=== PATIENT | female | born 1960 | race Caucasian/White ===

== ENCOUNTER 2022-12-09 12:26 | Inpatient (IN) | payer OTHER ==
[2022-12-09] MEDS ORDERED: DEXAMETHASONE SOD PHOSPHATE 4 MG/1 ML VIAL IVPUSH SCH (14:00)
[2022-12-09] MEDS ORDERED: ACETAMINOPHEN 1000 MG/100 ML BAG IVPB ONE (14:01)
[2022-12-09] MEDS ORDERED: ACETAMINOPHEN INJECTION 100 ML IVPB ONE (14:12)
[2022-12-09] MEDS ORDERED: DEXAMETHASONE SOD PHOSPHATE 10 MG/1 ML VIAL ONE (14:12)
[2022-12-09 14:48] LABS: BASO % 0.6 % (0-2.0); HEMATOCRIT 37.9 % (32.4-45.2); HEMOGLOBIN 13.2 GM/dL (10.7-15.3); LYMPH % 21.9 % (8-40); MCH 30.2 pg (25.7-33.7); MCHC 34.8 g/dl (32.0-36.0); MEAN CELL VOLUME 86.8 fl (80-96); MEAN PLT VOLUME 7.5 fl (7.5-11.1); MONO % 16.2 % (3.8-10.2); NEUT % 61.3 % (42.8-82.8); PLATELET COUNT 256 10^3/uL (134-434); RBC 4.36 M/mm3 (3.60-5.2); RDW 14.4 % (11.6-15.6); WHITE BLOOD COUNT 6.9 K/mm3 (4.0-10.0)
[2022-12-09 14:57] LABS: INR 1.12 (0.83-1.09)
[2022-12-09 14:59] LABS: ACTIVATED PTT 37.3 SECONDS (25.2-36.5)
[2022-12-09 15:10] LABS: POTASSIUM 4.3 mmol/L (3.5-5.1)
[2022-12-09 15:13] LABS: ALBUMIN 3.3 g/dl (3.4-5.0); BLOOD UREA NITROGEN 10.9 mg/dL (7-18); CALCIUM 8.9 mg/dL (8.5-10.1); MAGNESIUM 2.4 mg/dL (1.8-2.4)
[2022-12-09 15:16] LABS: CREATININE 0.6 mg/dL (0.55-1.3)
[2022-12-09 15:17] LABS: BILIRUBIN,TOTAL 0.3 mg/dL (0.2-1); TOT PROT 7.4 g/dl (6.4-8.2)
[2022-12-09 15:21] LABS: N-TERMINAL BNP 75.2 pg/ml (5-125)
[2022-12-09] MEDS ORDERED: clonazePAM 0.5 MG TABLET PO ONE (17:54)
[2022-12-09] MEDS ORDERED: REMDESIVIR 200 MG in SODIUM CHLORIDE 250 ML IVPB ONE (18:15)
[2022-12-09] MEDS ORDERED: clonazePAM 0.5 MG TABLET ONE ×2 (18:26→21:04)
[2022-12-09] MEDS ORDERED: DIVALPROEX NA *ER* EXTEND REL 250 MG TABLET.SA ONE (21:04)
[2022-12-09] MEDS ORDERED: QUEtiapine FUMARATE 100 MG TABLET (FP) ONE (21:04)
[2022-12-09] MEDS: PERPHENAZINE 4 MG TABLET PO SCH (21:14)
[2022-12-09] MEDS: QUEtiapine FUMARATE 300 MG TABLET PO SCH (21:14)
[2022-12-09] MEDS: DIVALPROEX NA *ER* EXTEND REL 250 MG TABLET.SA PO SCH (21:14)
[2022-12-09] MEDS: clonazePAM 0.5 MG TABLET PO SCH (21:14)
[2022-12-10] MEDS ORDERED: LEVOTHYROXINE NA 25 MCG TABLET (FP) ONE (07:24)
[2022-12-10] MEDS ORDERED: clonazePAM 0.5 MG TABLET ONE ×2 (07:24→13:49)
[2022-12-10] MEDS ORDERED: LEVOTHYROXINE NA 100 MCG TABLET (FP) ONE (07:24)
[2022-12-10] MEDS ORDERED: DIVALPROEX NA *ER* EXTEND REL 250 MG TABLET.SA ONE (07:25)
[2022-12-10] MEDS: LEVOTHYROXINE NA 125 MCG TABLET (FP) PO SCH (07:33)
[2022-12-10] MEDS: clonazePAM 0.5 MG TABLET PO SCH ×3 (07:33→21:48)
[2022-12-10] MEDS: DIVALPROEX NA *ER* EXTEND REL 250 MG TABLET.SA PO SCH ×2 (07:33→22:58)
[2022-12-10 08:09] LABS: BASO % 0.7 % (0-2.0); HEMATOCRIT 37.8 % (32.4-45.2); HEMOGLOBIN 12.6 GM/dL (10.7-15.3); LYMPH % 25.7 % (8-40); MCH 29.7 pg (25.7-33.7); MCHC 33.3 g/dl (32.0-36.0); MEAN CELL VOLUME 89.1 fl (80-96); MEAN PLT VOLUME 7.2 fl (7.5-11.1); MONO % 9.6 % (3.8-10.2); PLATELET COUNT 255 10^3/uL (134-434); RBC 4.24 M/mm3 (3.60-5.2); RDW 14.3 % (11.6-15.6)
[2022-12-10 08:36] LABS: POTASSIUM 3.9 mmol/L (3.5-5.1)
[2022-12-10 08:40] LABS: CALCIUM 8.8 mg/dL (8.5-10.1)
[2022-12-10 08:41] LABS: BLOOD UREA NITROGEN 16.4 mg/dL (7-18); MAGNESIUM 2.5 mg/dL (1.8-2.4)
[2022-12-10 08:43] LABS: BILIRUBIN,TOTAL 0.3 mg/dL (0.2-1)
[2022-12-10 08:44] LABS: CREATININE 0.6 mg/dL (0.55-1.3); PHOSPHOROUS 4.7 mg/dL (2.5-4.9)
[2022-12-10 08:46] LABS: TOT PROT 6.9 g/dl (6.4-8.2)
[2022-12-10] MEDS ORDERED: ALBUTEROL SO4 2.5/IPRATROPIUM 0.5 INH SOL 3 ML VIAL.NEB. NEB PRN (09:16)
[2022-12-10] MEDS: PERPHENAZINE 2 MG TABLET PO SCH (09:17)
[2022-12-10] MEDS: ENOXAPARIN NA (PORCINE) 40 MG/0.4 ML DISP.SYRIN SQ SCH (09:18)
[2022-12-10] MEDS: REMDESIVIR 100 MG in SODIUM CHLORIDE 250 ML IVPB SCH (09:26)
[2022-12-10] MEDS ORDERED: DEXAMETHASONE SOD PHOSPHATE 10 MG/1 ML VIAL IVPUSH SCH (10:00)
[2022-12-10] MEDS ORDERED: DEXAMETHASONE 4 MG TABLET (FP) PO SCH (10:00)
[2022-12-10 16:34] VITALS: RESP 20
[2022-12-10 19:01] VITALS: BMI 38.4
[2022-12-10] MEDS: QUEtiapine FUMARATE 200 MG TABLET PO SCH (19:32)
[2022-12-10] MEDS ORDERED: QUEtiapine FUMARATE 100 MG TABLET (FP) ONE (21:09)
[2022-12-10] MEDS: PERPHENAZINE 4 MG TABLET PO SCH (21:48)
[2022-12-10] MEDS: ATORVASTATIN CA 20 MG TABLET (FP) PO SCH (21:48)
[2022-12-10] MEDS: QUEtiapine FUMARATE 300 MG TABLET PO SCH (21:48)
[2022-12-11] MEDS: clonazePAM 0.5 MG TABLET PO SCH ×3 (05:34→22:00)
[2022-12-11] MEDS: QUEtiapine FUMARATE 200 MG TABLET PO SCH (06:16)
[2022-12-11] MEDS: LEVOTHYROXINE NA 125 MCG TABLET (FP) PO SCH (06:17)
[2022-12-11] MEDS: PERPHENAZINE 2 MG TABLET PO SCH (06:18)
[2022-12-11] MEDS: REMDESIVIR 100 MG in SODIUM CHLORIDE 250 ML IVPB SCH (09:40)
[2022-12-11] MEDS: ENOXAPARIN NA (PORCINE) 40 MG/0.4 ML DISP.SYRIN SQ SCH (09:40)
[2022-12-11] MEDS: DEXAMETHASONE SOD PHOSPHATE 10 MG/1 ML VIAL IVPUSH SCH (09:41)
[2022-12-11] MEDS: DIVALPROEX NA *ER* EXTEND REL 250 MG TABLET.SA PO SCH ×2 (09:42→22:00)
[2022-12-11] MEDS: PERPHENAZINE 4 MG TABLET PO SCH (22:00)
[2022-12-11] MEDS: QUEtiapine FUMARATE 300 MG TABLET PO SCH (22:00)
[2022-12-11] MEDS: ATORVASTATIN CA 20 MG TABLET (FP) PO SCH (22:00)
[2022-12-11] MEDS ORDERED: QUEtiapine FUMARATE 100 MG TABLET (FP) ONE (22:05)
[2022-12-12] MEDS: PERPHENAZINE 2 MG TABLET PO SCH (06:21)
[2022-12-12] MEDS: LEVOTHYROXINE NA 125 MCG TABLET (FP) PO SCH (06:21)
[2022-12-12] MEDS: DIVALPROEX NA *ER* EXTEND REL 250 MG TABLET.SA PO SCH ×2 (06:21→22:09)
[2022-12-12] MEDS: QUEtiapine FUMARATE 200 MG TABLET PO SCH (06:21)
[2022-12-12] MEDS: clonazePAM 0.5 MG TABLET PO SCH ×3 (06:21→21:54)
[2022-12-12] MEDS: DEXAMETHASONE SOD PHOSPHATE 10 MG/1 ML VIAL IVPUSH SCH (09:31)
[2022-12-12] MEDS: REMDESIVIR 100 MG in SODIUM CHLORIDE 250 ML IVPB SCH (09:31)
[2022-12-12] MEDS: ENOXAPARIN NA (PORCINE) 40 MG/0.4 ML DISP.SYRIN SQ SCH (09:31)
[2022-12-12] MEDS ORDERED: QUEtiapine FUMARATE 100 MG TABLET (FP) ONE (21:09)
[2022-12-12] MEDS: ATORVASTATIN CA 20 MG TABLET (FP) PO SCH (21:54)
[2022-12-12] MEDS: QUEtiapine FUMARATE 300 MG TABLET PO SCH (21:57)
[2022-12-12] MEDS: PERPHENAZINE 4 MG TABLET PO SCH (22:08)
[2022-12-13] MEDS: clonazePAM 0.5 MG TABLET PO SCH ×3 (05:43→22:21)
[2022-12-13] MEDS: PERPHENAZINE 2 MG TABLET PO SCH (06:26)
[2022-12-13] MEDS: DIVALPROEX NA *ER* EXTEND REL 250 MG TABLET.SA PO SCH ×2 (06:27→23:35)
[2022-12-13] MEDS: QUEtiapine FUMARATE 200 MG TABLET PO SCH (06:27)
[2022-12-13] MEDS: LEVOTHYROXINE NA 125 MCG TABLET (FP) PO SCH (06:27)
[2022-12-13] MEDS: ENOXAPARIN NA (PORCINE) 40 MG/0.4 ML DISP.SYRIN SQ SCH (10:15)
[2022-12-13] MEDS: DEXAMETHASONE SOD PHOSPHATE 10 MG/1 ML VIAL IVPUSH SCH (10:15)
[2022-12-13] MEDS: REMDESIVIR 100 MG in SODIUM CHLORIDE 250 ML IVPB SCH (10:15)
[2022-12-13] MEDS ORDERED: QUEtiapine FUMARATE 100 MG TABLET (FP) ONE (21:02)
[2022-12-13] MEDS: ATORVASTATIN CA 20 MG TABLET (FP) PO SCH (22:21)
[2022-12-13] MEDS: PERPHENAZINE 4 MG TABLET PO SCH (22:23)
[2022-12-13] MEDS: QUEtiapine FUMARATE 300 MG TABLET PO SCH (22:23)
[2022-12-14] MEDS: LEVOTHYROXINE NA 125 MCG TABLET (FP) PO SCH (06:08)
[2022-12-14] MEDS: clonazePAM 0.5 MG TABLET PO SCH ×3 (06:08→21:28)
[2022-12-14] MEDS: QUEtiapine FUMARATE 200 MG TABLET PO SCH (06:08)
[2022-12-14] MEDS: DIVALPROEX NA *ER* EXTEND REL 250 MG TABLET.SA PO SCH ×2 (06:08→21:31)
[2022-12-14] MEDS: PERPHENAZINE 2 MG TABLET PO SCH (06:28)
[2022-12-14 09:23] LABS: HEMATOCRIT 40.7 % (32.4-45.2); HEMOGLOBIN 13.7 GM/dL (10.7-15.3); MCH 29.8 pg (25.7-33.7); MCHC 33.7 g/dl (32.0-36.0); MEAN CELL VOLUME 88.4 fl (80-96); MEAN PLT VOLUME 7.4 fl (7.5-11.1); PLATELET COUNT 358 10^3/uL (134-434); RDW 14.1 % (11.6-15.6); WHITE BLOOD COUNT 10.9 K/mm3 (4.0-10.0)
[2022-12-14 09:43] LABS: POTASSIUM 4.2 mmol/L (3.5-5.1)
[2022-12-14 09:46] LABS: CALCIUM 8.3 mg/dL (8.5-10.1)
[2022-12-14 09:47] LABS: BLOOD UREA NITROGEN 20.7 mg/dL (7-18)
[2022-12-14 09:51] LABS: CREATININE 0.7 mg/dL (0.55-1.3)
[2022-12-14] MEDS: ENOXAPARIN NA (PORCINE) 40 MG/0.4 ML DISP.SYRIN SQ SCH (10:54)
[2022-12-14] MEDS: DEXAMETHASONE SOD PHOSPHATE 10 MG/1 ML VIAL IVPUSH SCH (10:54)
[2022-12-14 14:42] VITALS: PULSE 102
[2022-12-14] MEDS ORDERED: QUEtiapine FUMARATE 100 MG TABLET (FP) ONE (21:20)
[2022-12-14] MEDS: PERPHENAZINE 4 MG TABLET PO SCH (21:28)
[2022-12-14] MEDS: QUEtiapine FUMARATE 300 MG TABLET PO SCH (21:28)
[2022-12-14] MEDS: ATORVASTATIN CA 20 MG TABLET (FP) PO SCH (21:28)
[2022-12-14 23:15] VITALS: BP 110/79; TEMP 99.3
== END 2022-12-15 01:00 | disposition home or self-care (01) | DRG 179 ==
LOC: JER 12:26 → JERBED 17:55 → J8W 12-10 17:15
PROVIDERS: ADMIT Internal Medicine; ATTEND Internal Medicine
PROC: XW033E5 Introduction of Remdesivir Anti-infective into Peripheral Vein, Percutaneous Approach, New Technology Group 5 (ICD-10-PCS; principal; 2022-12-09)
DX: U07.1 COVID-19 (principal); E78.5 Hyperlipidemia, unspecified; E53.8 Deficiency of other specified B group vitamins; F25.0 Schizoaffective disorder, bipolar type; R09.02 Hypoxemia; E03.9 Hypothyroidism, unspecified; Z96.653 Presence of artificial knee joint, bilateral; Z85.850 Personal history of malignant neoplasm of thyroid
CPT/HCPCS: 0241U-QW; 36415; 71045-TC-FY; 71275-TC; 80048; 80053; 83735; 83880; 84100; 84484; 85025; 85610; 85730; 86140; 93005; 93010; 94761; 97116-GP; 97161-GP; 99285-25; C9399; J1100